=== PATIENT | male | born 1975 | race Two or more races ===

== ENCOUNTER 2016-09-26 05:54 | Emergency (ER) | payer MEDICAID ==
[~2016-09-26] VITALS: Ht 172.7 cm; Wt 77.1 kg
[2016-09-26 09:39] VITALS: BP 140/88
[2016-09-26] MEDS ORDERED: LACTULOSE 20Gm/30ML SOLN PO ONE (10:30)
== END 2016-09-26 10:35 | disposition home or self-care (01) ==
LOC: ER 05:58
DX: K59.00 Constipation, unspecified (principal); K64.4 Residual hemorrhoidal skin tags
CPT/HCPCS: 74000

== ENCOUNTER 2017-06-16 06:39 | Emergency (ER) | payer MEDICAID ==
[~2017-06-16] VITALS: Ht 167.6 cm; Wt 77.1 kg
[2017-06-16 07:43] LABS: Urine Bilirubin Negative (Negative); Urine Blood Negative /uL (Negative); Urine Color Yellow (Yellow); Urine Glucose Normal (Normal); Urine Ketone Negative (Negative); Urine Mucus FEW (None Seen); Urine Nitrite Negative (Negative); Urine RBC <1 /hpf (0 - 3); Urine Urobilinogen Normal (Negative); Urine pH 5.5 (5.0-8.0)
[2017-06-16 09:04] VITALS: BP 121/79
== END 2017-06-16 09:32 | disposition home or self-care (01) ==
LOC: ER 06:44
DX: N43.3 Hydrocele, unspecified (principal); F17.200 Nicotine dependence, unspecified, uncomplicated
CPT/HCPCS: 76870; 81001

== ENCOUNTER 2018-12-21 06:39 | Emergency (ER) | payer MEDICAID ==
[~2018-12-21] VITALS: Ht 175.3 cm; Wt 78.0 kg
[2018-12-21 08:18] LABS: Basophils # (auto) 0 uL; Eosinophils # (auto) 0.1 uL; Eosinophils % (auto) 2.4 % (0.0-7.0); Hematocrit 44.7 % (41.0-53.0); Hemoglobin 15.2 g/dL (13.5-17.5); Lymphocytes # (auto) 1.7 uL; Lymphocytes % (auto) 37.3 % (10.0-50.0); Mean Corpuscular Hemoglobin 30.5 pg (28.0-32.0); Mean Corpuscular Volume 89.8 fL (80.0-100.0); Monocytes # (auto) 0.3 uL; Monocytes % (auto) 5.9 % (0.0-12.0); Neutrophils # (auto) 2.5 uL; Neutrophils % (auto) 53.4 % (37.0-80.0); Nucleated Red Blood Cells % 0.3 %; Platelet Count (auto) 259 10^3/uL (140-450); Red Blood Cells 4.98 10^6/uL (4.5-5.90); Red Cell Distribution Width 13.3 % (11.8-14.3); White Blood Cell 4.6 10^3/uL (4.4-10.8)
[2018-12-21] MEDS: ASPirin 81 mg TAB PO ONE (08:20)
[2018-12-21 08:34] LABS: INR 0.93 (0.9-1.15); Partial Thromboplastin Time 30.6 sec (23.78-33.04)
[2018-12-21 08:35] LABS: Anion Gap 8 (5-15); BUN/Creatinine Ratio 16.5; Blood Urea Nitrogen 13 mg/dL (7-18); Calcium 8.5 mg/dL (8.5-10.1); Carbon Dioxide 24 mmol/L (21-32); Chloride 109 mmol/L (98-107); GFR African American 139 mL/min; GFR Non-African American 115 mL/min; Glucose 98 mg/dL (74-106); Potassium 3.6 mmol/L (3.5-5.1); Sodium 141 mmol/L (136-145)
[2018-12-21 08:44] LABS: Alanine Aminotransferase 29 U/L (16-61); Alkaline Phosphatase 131 U/L (45-117); Aspartate Aminotransferase 18 U/L (15-37); Bilirubin, Total 0.4 mg/dL (0.2-1.0); Total Protein 7.4 g/dL (6.4-8.2)
[2018-12-21 11:08] VITALS: BP 117/76
== END 2018-12-21 11:37 | disposition home or self-care (01) ==
LOC: ER 06:39
DX: R07.89 Other chest pain (principal); N50.811 Right testicular pain
CPT/HCPCS: 36415; 71046; 80053; 84443; 84484; 85025; 85610; 85730

== ENCOUNTER 2021-01-02 06:32 | Emergency (ER) | payer MEDICAID ==
[~2021-01-02] VITALS: Ht 170.2 cm; Wt 81.6 kg
[2021-01-02 07:19] VITALS: BP 148/92
== END 2021-01-02 08:10 | disposition home or self-care (01) ==
LOC: ER 06:32
DX: R51.9 Headache, unspecified (principal)
CPT/HCPCS: 70450

== ENCOUNTER → 2021-09-03 | Emergency (ER) | payer MEDICAID ==
[~2021-09-03] VITALS: Ht 175.3 cm; Wt 81.6 kg
[2021-09-03 06:41] VITALS: BP 137/92
[2021-09-03 09:53] LABS: Salicylate < 1.7 mg/dL (2.8-20.0)
[2021-09-03 10:16] LABS: Acetaminophen < 2.0 ug/mL (10-30)
[2021-09-03 10:59] LABS: Alcohol, Urine < 3.0 mg/dL (0-10); Amphetamine Screen, Urine NEGATIVE (NEGATIVE); Barbiturate Scree,Urine NEGATIVE (NEGATIVE); Benzodiazephine Screen, Urine NEGATIVE (NEGATIVE); Cannabinoid Screen, Urine NEGATIVE (NEGATIVE); Cocaine Screen, Urine NEGATIVE (NEGATIVE); Opiate Scree,Urine NEGATIVE (NEGATIVE); Phencyclidine Screen, Urine NEGATIVE (NEGATIVE)
== END | disposition home or self-care (01) ==
LOC: ER 06:40
DX: R51.9 Headache, unspecified (principal)
CPT/HCPCS: 36415; 70450; 80307; 80320; 80329